=== PATIENT | female | born 1955 | race Caucasian/White ===

== ENCOUNTER 2018-07-27 05:04 | Inpatient (IN) | payer MEDICAID ==
[~2018-07-27] VITALS: Ht 167.6 cm; Wt 81.6 kg
[2018-07-27] MEDS ORDERED: CELECOXIB 100 MG CAPSULE ONE (07:11)
[2018-07-27] MEDS ORDERED: oxyCODONE HCL SR 10MG TAB.SR.12H PO ONE (07:11)
[2018-07-27] MEDS ORDERED: ACETAMINOPHEN 325 MG TABLET ONE (07:11)
[2018-07-27] MEDS ORDERED: BACITRACIN 50000 UNITS/VIAL ONE (07:20)
[2018-07-27] MEDS ORDERED: BUPIVACAINE 0.5 % PF 150 MG/30 ML VIAL ONE (07:20)
[2018-07-27] MEDS ORDERED: HYDROMORPHONE INJ 2 MG/ML DISP.SYRIN ONE (08:19)
[2018-07-27] MEDS ORDERED: CLINDAMYCIN 900 MG/6 ML VIAL ONE (08:20)
[2018-07-27] MEDS ORDERED: ROCURONIUM BROMIDE 50 MG/5 ML ONE (08:20)
[2018-07-27] MEDS ORDERED: TRANEXAMIC ACID 3,000 MG in SODIUM CHLORIDE IRRIG SOLUTION 70 ML IR ONE (08:30)
[2018-07-27] MEDS ORDERED: HYDROMORPHONE 1 MG/1 ML DISP.SYRIN ONE (09:56)
[2018-07-27] MEDS ORDERED: ONDANSETRON HCL/PF 4 MG/2 ML VIAL ONE (09:58)
[2018-07-27] MEDS ORDERED: FENTANYL PF 100MCG/2ML AMPUL ONE (10:18)
[2018-07-27 11:00] VITALS: BP 115/56
[2018-07-27] MEDS ORDERED: MORP15TA7 PO (11:37)
[2018-07-27] MEDS ORDERED: GEMF600T5 PO (11:37)
[2018-07-27] MEDS ORDERED: ALBU8.5H8 IH (11:37)
[2018-07-27] MEDS ORDERED: OXYC15TA2 PO (11:37)
[2018-07-27] MEDS ORDERED: LEVO75TA7 PO (11:37)
[2018-07-27] MEDS ORDERED: HYDR25TA4 PO (11:40)
[2018-07-27] MEDS ORDERED: DULCOLAX 10 MG/SUPP.RECT RC PRN (12:00)
[2018-07-27] MEDS ORDERED: ZOFRAN 4mg/2ML IV PRN (12:00)
[2018-07-27] MEDS ORDERED: TYLENOL 650 MG TABLET PO PRN (12:00)
[2018-07-27] MEDS ORDERED: SENOKOT 8.6 MG TABLET PO PRN (12:00)
[2018-07-27] MEDS ORDERED: COLACE 250 MG CAPSULE PO PRN (12:00)
[2018-07-27] MEDS ORDERED: HYDROCODONE/APAP 5/325MG 1 EACH TABLET PO PRN (12:00)
[2018-07-27] MEDS ORDERED: AMBIEN 5 MG TABLET PO PRN (12:00)
[2018-07-27] MEDS: IV LR 1000 ML 1,000 ML IV PRN (12:00)
--- NOTE | 2018-07-27 12:00 | NUR ---
MS UNDERWEAR HEMMER NOTES RECEIVED PT VIA BED FROM OR TRANSPORTED BY 2 NURSES TO [facility]. PT ARRIVED AT 1050. VITALS TAKEN AND RECORDED. ON SUPPLEMENTAL OXYGEN AT 2LPM VIA NC, SATURATION OF 98% BUT PT PREFERS TO BE IN RA. PT DENIES ANY PAIN OR DISCOMFORT. SKIN INTACT. DRESSING TO LEFT HIP INTACT. PT PREFERS NOT TO TOUCH DRESSINGS FOR NOW. / DR DONNELLY ORDERED FOR DRESSING TO BE CHANGED PRIOR DISCHARGE BY THE NURS; PT AWARE. PIV TO RAC G20, FLUSHED WITH NS, INTACT AND OPERATIONAL, STARTED IVF LR AT 75ML/HR; FLUID INFUSING WELL. ABDUCTOR PILLOW BETWEEN LEGS IN PLACE. PT ON GILLIS CATH WITH YELLOW-COLORED URINE IN THE BAG. ADMISSION INFORMATIONS GATHERED FROM PATIENT. PT ABLE TO MAKE NEEDS KNOWN. ALL BELONGINGS LISTED TO INVENTORY LIST. PT KEPT COMFORTABLE, CLEAN AND DRY. CALL LIGHT AND FLUID KEPT WITHIN REACH. PT'S BED IN LOWEST, LOCKED POSITION WITH SR X3. WILL CONTINUE PLAN OF CARE.
[2018-07-27] MEDS: CLINDAMYCIN 600 MG in IV D5W 50 ML IV SCH ×2 (14:02→20:19)
[2018-07-27] MEDS: HYDROMORPHONE 1 MG/1 ML DISP.SYRIN IV PRN ×4 (14:02→23:53)
[2018-07-27 16:00] VITALS: BP 102/53
[2018-07-27] MEDS ORDERED: RIVAROXABAN 10 MG TABLET PO SCH (17:00)
--- NOTE | 2018-07-27 18:51 | NUR ---
MS RN CLOSING NOTES PT REMAINS RESTING IN BED. PT A/O X4. TOLERATING RA, WITH NO ACUTE RESPIRATORY DISTRESS NOTED. PT DENIES ANY PAIN OR DISCOMFORT AT THIS TIME. INF LR AT 75ML/HR TO RAC G20, INTACT AND FLUID INFUSING WELL. ABDUCTOR PILLOW BETWEEN LEGS IN PLACE. PT WITH GILLIS CATH WITH YELLOW-COLORED URINE IN THE BAG, URINE OUTPUT OF 300ML. PT ABLE TO MAKE NEEDS KNOWN. ALL NEEDS AND CARE PROVIDED. PT KEPT COMFORTABLE, CLEAN AND DRY. CALL LIGHT AND FLUID KEPT WITHIN REACH. PT'S BED IN LOWEST, LOCKED POSITION WITH SR X3. WILL ENDORSE TO INCOMING NURSE FOR RAUDEL.
--- NOTE | 2018-07-27 19:20 | NUR ---
MS RN OPENING NOTES: RECEIVED PATIENT RESTING COMFORTABLY IN BED. NO COMPLAIN OF PAIN. NO N/V. WITH ABDUCTION PILLOW AT ALL TIMES. SCD'S ON. CALL LIGHT WITHIN REACH. PATIENT IS AWAKE ALERT AND ORIENTED X4. WITH ICE PACK ON THE LEFT HIP INCISION. LEFT HIP DRESSING CLEAN AND DRY AND INTACT. WITH GILLIS CATH DRAINING YELLOW URINE.
--- NOTE | 2018-07-27 19:30 | NUR ---
MS RN OPENING NOTES: RECEIVED PATIENT SITTING IN THE CHAIR, AWAKE ALERT AND ORIENTED X4. NO COMPLAIN OF PAIN, NO DIZZINESS. INSTRUCTED TO CALL FRO ASSISTANCE WHEN NEEDED, CALL LIGHT WITHIN REACH. STILL ON NPO PATIENT AWARE, WITH IVF D5 1/2 NS INFUSING GOOD. INSTRUCTED PATIENT TO INFORM RN FOR ANY SIGNS OF HYPOGLYCEMIA, PATIENT VERBALIZED UNDERSTANDING. HOSPITAL SOCKS ON.
[2018-07-27 20:00] VITALS: BP 104/57
--- NOTE | 2018-07-27 20:04 | NUR ---
INCENTIVE SPIROMETER GIVEN TO THE PATIENT. PATIENT STSTED THAT SHE KNOWS HO TO USE IT.
[2018-07-28] MEDS: CLINDAMYCIN 600 MG in IV D5W 50 ML IV SCH (01:38)
[2018-07-28] MEDS: IV LR 1000 ML 1,000 ML IV PRN ×2 (01:38→17:12)
[2018-07-28] MEDS: HYDROMORPHONE 1 MG/1 ML DISP.SYRIN IV PRN ×8 (04:05→23:25)
--- NOTE | 2018-07-28 05:47 | NUR ---
MS RN CLOSING NOTES: PATIENT IS RESTING COMFORTABLY IN BED. MEDICATED WITH PAIN MED DILAUDID, RELIEVED. WITH ABDUCTION PILLOW AT ALL TIMES. WITH ICE PACK ON THE LEFT HIP. CALL LIGHT WITHIN REACH. BED IN LOW LOCKED POSITION.
--- NOTE | 2018-07-28 07:18 | NUR ---
RN MS OPENING NOTES Received patient on room air, no sob noted. Patient lying down comfortably with no s/s of pain noted. Ice pack remains on her hip. Abduction pillow remains placed. Patient's bed at the lowest setting, call light within reach.
[2018-07-28 08:00] VITALS: BP 101/62
[2018-07-28] MEDS: RIVAROXABAN 10 MG TABLET PO SCH (10:14)
--- NOTE | 2018-07-28 10:40 | NUR ---
RN MS NOTES Tillman cath removed at this time. No bleeding noted, no discomfort noted.
[2018-07-28 16:00] VITALS: BP 119/67
--- NOTE | 2018-07-28 18:49 | NUR ---
RN MS CLOSING NOTES Patient remains on room air, no sob noted. Patient's pain is controlled by dilaudid, roughly every 2-3 hours. Patient's IVF flowing with no obstruction, @ 75 mL per hour LR. Tillman was dc'd and patient able to urinate in the restroom with minimal assistance. Dressing to be changed by RN before D/C. Patient's bed at the lowest setting, call light within reach.
--- NOTE | 2018-07-28 19:15 | NUR ---
MS RN RECEIVE PT IN BED A/O X 4 WATCHING TV RESPIRATIONS EVEN AND UNLABORED,STABLE, NO S/S OF DISTRESS, SAFETY MEASURES IN PLACE. WILL CONTINUE TO MONITOR
[2018-07-28 20:00] VITALS: BP_SYST 122; BP_SYST 126; BP_DIAS 72; BP_DIAS 79
[2018-07-29] MEDS: HYDROMORPHONE 1 MG/1 ML DISP.SYRIN IV PRN ×7 (02:08→20:26)
--- NOTE | 2018-07-29 06:26 | NUR ---
MS RN ASLEEP AND EASILY AWAKEN, RESPIRATION EVEN AND UNLABORED, ABDUCTION PILLOW AT ALL TIMES, ICE PACK LEFT HIP, ABLE TO WALK WITH WALKER. L HIP INCISION DRESSING INTACT DRY AND CLEAN NO S/S OF BLEEDING PT MEDICATED WITH PAIN MEDS PRN WITH RELIEF. KEPT CLEAN AND DRY AND COMFORTABLE. NEEDS ATTENDED AND ANTICIPATED, NURSING CARE RENDERED, OFFLOAD HEELS AND ELBOWS AT ALL TIMES. NO C/O PAIN AT THIS TIME. SAFETY MEASURES AT ALL TIMES. ENDORSE TO THE NEXT SHIFT.
--- NOTE | 2018-07-29 07:50 | NUR ---
M/S RN NOTES PATIENT LYING IN BED AWAKE, ALERT AND ORIENTED X4, NO RESPIRATORY DISTRESS, PAIN TOLERABLE AT THIS WITH DILAUDID ORDERED. SKIN WARM TO TOUCH. IV ACCESS SITE INTACT, IVF OF LR INFUSING ON THE RFA AT 125ML/HR. PATIENT'S NEEDS ATTENDED. BED ON LOWEST LOCKED POSITION, CALL LIGHT WITHIN REACH. WILL CONTINUE TO MONITOR.
[2018-07-29 09:22] VITALS: BP 128/65
[2018-07-29] MEDS: IV LR 1000 ML 1,000 ML IV PRN (14:55)
[2018-07-29 16:00] VITALS: BP 116/65
[2018-07-29] MEDS: RIVAROXABAN 10 MG TABLET PO SCH (16:13)
--- NOTE | 2018-07-29 19:00 | NUR ---
M/S RN NOTES PATIENT ALERT AND ORIENTED X 4, NO RESPIRATORY DISTRESS, PAIN TOLERABLE AT THIS TIME WITH DILAUDID GIVEN ORDERED. SKIN WARM TO TOUCH. IV ACCESS SITE INTACT AND PATENT WITH LR INFUSING AT 125ML/HR. PATIENT WITH DISCHARGE ORDER PER MD. WILL ENDORSE TO ONCOMING SHIFT.
[2018-07-29 20:00] VITALS: BP 147/67
--- NOTE | 2018-07-29 20:35 | NUR ---
RN MS OPENING NOTES RECEIVED PT IN BED, AWAKE ALERT ORIENTED X4, BREATHING EVEN AND UNLABORED ON ROOM AIR. COMPLAINING OF HIP PAIN 09/05. WILL ADMINISTER DILAUDID PRESCRIBED. PT DUE FOR DISCHARGE, TRYING TO FIND A RIDE. WILL CONTINUE TO MONITOR, DISCHARGE PAPER WORK COMPLETED./
--- NOTE | 2018-07-29 21:40 | NUR ---
PT DISCHARGED HOME WITH FRIEND, ALL BELONGING ACCOUNTED FOR, IV ACCESS REMOVED, DISCHARGE PAPERS SIGNED. PT STABLE AND TAKEN VIA WHEEL CHAIR DOWN TO PARKING LOT/
== END 2018-07-29 21:45 | disposition home health service (06) | DRG 301 ==
LOC: DS 05:04 → MED 11:22
PROC: 0SRB0JZ Replacement of Left Hip Joint with Synthetic Substitute, Open Approach (ICD-10-PCS; principal; 2018-07-27)
DX: M16.12 Unilateral primary osteoarthritis, left hip (principal); M06.9 Rheumatoid arthritis, unspecified; E03.9 Hypothyroidism, unspecified; I10 Essential (primary) hypertension; Z86.19 Personal history of other infectious and parasitic diseases; Z88.0 Allergy status to penicillin
CPT/HCPCS: 87081-TC; 88305-TC; 97110-TC; 97116-TC; 97530-TC; A4217; A6209; A6402; G0378; J1100; J1170; J1885; J2405; J2704; J2710; J3010; J3490; J7060; J7120